=== PATIENT | female | born 2000 | race Two or more races ===

== ENCOUNTER 2022-05-17 16:03 | Emergency (ER) | payer MEDICAID, OTHER ==
[~2022-05-17] VITALS: Ht 162.6 cm; Wt 47.1 kg
[2022-05-17 18:28] LABS: Urine Bacteria NONE SEEN /hpf (None Seen); Urine Blood Negative /uL (Negative); Urine Specific Gravity 1.014 (1.001-1.035); Urine WBC 2 /hpf (0 - 5)
[2022-05-17 18:55] LABS: Basophils # (auto) 0.1 10 ^3/uL (0-0.2); Basophils % (auto) 0.8 % (0.0-2.0); Eosinophils # (auto) 0.1 10 ^3/uL (0-0.8); Eosinophils % (auto) 1.2 % (0.0-7.0); Hematocrit 42.5 % (36.0-46.0); Hemoglobin 14.4 g/dL (12.2-16.2); Lymphocytes # (auto) 2.9 10 ^3/uL (0.4-5.4); Lymphocytes % (auto) 35.7 % (10.0-50.0); Mean Corpuscular Hemoglobin 30.5 pg (28.0-32.0); Mean Corpuscular Volume 89.8 fL (80.0-100.0); Monocytes # (auto) 0.6 10 ^3/uL (0-1.3); Monocytes % (auto) 7.3 % (0.0-12.0); Neutrophils # (auto) 4.4 10 ^3/uL (1.6-8.6); Nucleated Red Blood Cells % 0.1 %; Red Blood Cells 4.73 10^6/uL (4.0-5.20); Red Cell Distribution Width 13.3 % (11.8-14.3)
[2022-05-17 19:13] LABS: Albumin 4.3 g/dL (3.4-5.0); BUN/Creatinine Ratio 19.3; Calcium 9.1 mg/dL (8.5-10.1)
[2022-05-17 19:15] LABS: Bilirubin, Total 0.5 mg/dL (0.2-1.0); Total Protein 8.1 g/dL (6.4-8.2)
[2022-05-17] MEDS ORDERED: HYDROcodone-ACET 5/325MG TAB PO ONE (22:15)
[2022-05-18 00:32] VITALS: BP 115/75
== END 2022-05-18 00:34 | disposition home or self-care (01) ==
LOC: ER 16:03
DX: R42 Dizziness and giddiness (principal); R06.02 Shortness of breath; M54.9 Dorsalgia, unspecified
CPT/HCPCS: 36415; 71045; 80053; 81001; 81025; 85025

== ENCOUNTER 2022-08-16 03:37 | Emergency (ER) | payer OTHER, MEDICAID | END 2022-08-16 05:35 | disposition left against medical advice (07) | LOC: ER 03:37 | DX: R10.9 Unspecified abdominal pain (principal); Z53.21 Procedure and treatment not carried out due to patient leaving prior to being seen by health care provider ==